=== PATIENT | female | born 1990 | race Caucasian/White ===

== ENCOUNTER 2020-12-16 08:02 | Day surgery (SDC) | payer OTHER, SELFPAY ==
[~2020-12-16] VITALS: Ht 154.9 cm; Wt 87.1 kg
[2020-12-16] MEDS ORDERED: MIDAZOLAM 5 MG/5 ML VIAL ONE (11:19)
[2020-12-16] MEDS ORDERED: MIDAZOLAM 2 MG/2 ML VIAL IVP ONE (11:55)
== END 2020-12-16 12:17 | disposition home or self-care (01) ==
LOC: MDS 08:02 → MMU 08:03 → MDS 12:17
PROVIDERS: ATTEND Internal Medicine Gastroenterology
DX: K21.00 Gastro-esophageal reflux disease with esophagitis, without bleeding (principal); E66.09 Other obesity due to excess calories; F17.210 Nicotine dependence, cigarettes, uncomplicated; Z68.36 Body mass index [BMI] 36.0-36.9, adult; I10 Essential (primary) hypertension; Z90.49 Acquired absence of other specified parts of digestive tract; Z20.828 Contact with and (suspected) exposure to other viral communicable diseases
CPT/HCPCS: 43235; J2250; U0003

== ENCOUNTER 2022-04-05 13:45 | Emergency (ER) | payer OTHER ==
[~2022-04-05] VITALS: Ht 160 cm; Wt 83.9 kg
--- NOTE | 2022-04-05 15:08 | NUR ---
PT BACK FROM US
[2022-04-05 15:12] LABS: BASOPHILS % (AUTO) 0.4 % (0.0-2.0); EOSINOPHILS % (AUTO) 0.5 % (0.0-4.0); HEMATOCRIT 38.4 % (36-48); HEMOGLOBIN 12.6 g/dL (12.0-16.0); LYMPHOCYTES # (AUTO) 2.6 K/uL (2.5-16.5); LYMPHOCYTES % (AUTO) 29.9 % (20.5-51.1); MEAN CORPUSCULAR HEMOGLOBIN 29 pg (27-31); MEAN CORPUSCULAR HGB CONC 33 g/dL (33-37); MEAN CORPUSCULAR VOLUME 87.1 fL (80-94); MONOCYTES # (AUTO) 0.8 K/uL (0.8-1.0); MONOCYTES % (AUTO) 8.8 % (1.7-9.3); NEUTROPHILS # (AUTO) 5.2 K/uL (1.8-7.7); NEUTROPHILS % (AUTO) 60.4 % (42.2-75.2); PLATELET COUNT (AUTO) 256 K/uL (140-450); RED BLOOD CELL COUNT(AUTO) 4.41 MIL/uL (4.20-5.40); RED CELL DISTRIBUTION WIDTH 13.2 % (11.6-13.7); WHITE BLOOD COUNT (AUTO) 8.6 K/uL (4.8-10.8)
--- NOTE | 2022-04-05 15:12 | NUR ---
DR MARTINEZ AT BEDSIDE EVALUATING PT
[2022-04-05 15:23] VITALS: BP 128/77
--- NOTE | 2022-04-05 15:30 | NUR ---
HR RANGING BETWEEN [phone]. DR MARTINEZ MADE AWARE
[2022-04-05 15:36] LABS: ALBUMIN 3.5 g/dL (3.4-5.0); ANION GAP 12.6 (8-16); CARBON DIOXIDE 24.6 mmol/L (21-32); CREATININE 0.7 mg/dL (0.6-1.3); POTASSIUM 4.2 mmol/L (3.5-5.1); TOTAL BILIRUBIN 0.2 mg/dL (0.0-1.0)
--- NOTE | 2022-04-05 15:40 | NUR ---
31 Y/O FEMALE C/O LLQ ABD PAIN X1 DAY WITH LIGHT VAGINAL BLEEDING. PT REPORTS BEING 6 WEEKS . A1. PT DENIES NAUSEA/VOMITING. DENIES DYSURIA. BLEEDING CONTROLLED. ABD IS FLAT SOFT AND NONTENDER. PT A/O X4 WITH EVEN AND UNLABORED RESPIRATIONS. PMH:HTN NKDA
--- NOTE | 2022-04-05 17:06 | NUR ---
PT SITTING IN BED AT THIS TIME. EVEN AND UNLABORED RESPIRATIONS NOTED. WILL CONTINUE TO MONITOR
[2022-04-05 18:42] LABS: APPEARANCE,URINE CLEAR (CLEAR); BILIRUBIN,URINE NEGATIVE (NEGATIVE); BLOOD, URINE 1+ (NEGATIVE); COLOR,URINE YELLOW (YELLOW); LEUKOCYTE ESTERASE ,URINE 2+ (NEGATIVE); NITRITE, URINE NEGATIVE (NEGATIVE); UGLUCOSE NEGATIVE (NEGATIVE)
--- NOTE | 2022-04-05 18:51 | NUR ---
PT PROVIDED WITH DINNER TRAY. DENYING PAIN AT THIS TIME. ALL NEEDS MET. AWAITING ON [facility]
--- NOTE | 2022-04-05 19:18 | NUR ---
REPORT GIVEN TO MILA BELCHER. TRANSFER OF CARE AT THIS TIME.
[2022-04-05] MEDS ORDERED: CEPH-588 PO (19:28)
[2022-04-05] MEDS ORDERED: cephALEXin 500 MG CAP PO ONE (19:30)
--- NOTE | 2022-04-05 19:49 | NUR ---
RHOG[facility], 300MCG, ADMINISTERED IM AT 1945, LEFT DELT. PT TOLERATED WELL. CONSENT SIGNED. NO PAIN.
[2022-04-05 19:58] VITALS: BP 128/68
--- NOTE | 2022-04-05 20:19 | NUR ---
Patient discharged with v/s stable. Written and verbal after care instructions given and explained. Patient alert, oriented and verbalized understanding of instructions. Ambulatory with steady gait. All questions addressed prior to discharge. ID band removed. Patient advised to follow up with PMD. Rx of KEFLEX given. Patient educated on indication of medication including possible reaction and side effects. Opportunity to ask questions provided and answered. VSS, A/OX4, AMBULATORY, UNLABORED BREATHING, AND CALM DEMEANOR.
== END 2022-04-05 20:19 | disposition home or self-care (01) ==
LOC: MED 13:45
DX: O20.0 Threatened abortion (principal); O23.41 Unspecified infection of urinary tract in pregnancy, first trimester; O34.81 Maternal care for other abnormalities of pelvic organs, first trimester; N83.201 Unspecified ovarian cyst, right side; I10 Essential (primary) hypertension; Z90.49 Acquired absence of other specified parts of digestive tract; Z79.899 Other long term (current) drug therapy; Z3A.01 Less than 8 weeks gestation of pregnancy
CPT/HCPCS: 36415; 76817; 80053; 81001; 81025; 84702; 85025; 86850; 86886; 86900; 86901; 87086; 99284; J2790; Q0092

== ENCOUNTER 2022-04-09 13:06 | Emergency (ER) | payer OTHER ==
[~2022-04-09] VITALS: Ht 152.4 cm; Wt 83.0 kg
[~2022-04-09 13:06] MED LIST: CEPH-588 PO
[2022-04-09 13:18] VITALS: BP 128/77
--- NOTE | 2022-04-09 13:25 | NUR ---
AMBULATED TO BED 11 WITH STEADY GAIT
--- NOTE | 2022-04-09 13:28 | NUR ---
AMBULATED TO BATHROOM
--- NOTE | 2022-04-09 13:30 | NUR ---
31 y/o female bib spouse from home, pt states this morning she had blood with wiping. denies any heavy bleeding or clots at this time. no saturation of pads at this time. c/o lower abd pain, describes it as cramping denies nausea, vomiting, diarrhea. skin is pink/warm/dry. a&o x4, macanese speaking, with even and steady gait. lungs clear bl, heart rate even and regular. pt denies any fever, cp, sob, or cough at this time. pt states pain is 7/10 at this time. patient positioned for comfort. hob elevated. bed down. ermd made aware of pt. LMP: February [id number] pmh: htn nka
--- NOTE | 2022-04-09 14:09 | NUR ---
ANIYAH AT BEDSIDE
[2022-04-09 14:30] LABS: BASOPHILS # (AUTO) 0.1 K/uL (0.00-0.22); BASOPHILS % (AUTO) 0.9 % (0.0-2.0); EOSINOPHILS % (AUTO) 0.4 % (0.0-4.0); HEMATOCRIT 41.2 % (36-48); HEMOGLOBIN 13.6 g/dL (12.0-16.0); LYMPHOCYTES % (AUTO) 27.4 % (20.5-51.1); MEAN CORPUSCULAR HEMOGLOBIN 29 pg (27-31); MEAN CORPUSCULAR HGB CONC 33 g/dL (33-37); MEAN CORPUSCULAR VOLUME 88.6 fL (80-94); MONOCYTES # (AUTO) 0.6 K/uL (0.8-1.0); NEUTROPHILS # (AUTO) 4.7 K/uL (1.8-7.7); NEUTROPHILS % (AUTO) 63.3 % (42.2-75.2); PLATELET COUNT (AUTO) 221 K/uL (140-450); RED BLOOD CELL COUNT(AUTO) 4.66 MIL/uL (4.20-5.40); WHITE BLOOD COUNT (AUTO) 7.5 K/uL (4.8-10.8)
[2022-04-09 14:39] LABS: BILIRUBIN,URINE NEGATIVE (NEGATIVE); BLOOD, URINE 3+ (NEGATIVE); COLOR,URINE YELLOW (YELLOW); LEUKOCYTE ESTERASE ,URINE 1+ (NEGATIVE); NITRITE, URINE NEGATIVE (NEGATIVE); UGLUCOSE NEGATIVE (NEGATIVE)
[2022-04-09 14:49] LABS: APPEARANCE,URINE HAZY (CLEAR)
[2022-04-09 14:51] LABS: ALBUMIN 3.3 g/dL (3.4-5.0); ANION GAP 9.6 (8-16); CARBON DIOXIDE 28.5 mmol/L (21-32); CREATININE 0.8 mg/dL (0.6-1.3); POTASSIUM 4.1 mmol/L (3.5-5.1); TOTAL BILIRUBIN 0.3 mg/dL (0.0-1.0)
[2022-04-09 15:15] LABS: RBC,URINE 0-5 /HPF (0-5); YEAST,URINE Few /HPF (None Seen)
[2022-04-09 15:44] LABS: PROTHROMBIN TIME 10.1 secs (10.8-13.4)
[2022-04-09 16:39] VITALS: BP 126/52
--- NOTE | 2022-04-09 16:39 | NUR ---
Patient discharged with v/s stable. Written and verbal after care instructions ABOUT THREATENED MISCARRIAGE given and explained. Patient alert, oriented and verbalized understanding of instructions. Ambulatory with steady gait. All questions addressed prior to discharge. ID band removed. Patient advised to follow up with PMD. Rx of KELFEX given. Patient educated on indication of medication including possible reaction and side effects. Opportunity to ask questions provided and answered.
[2022-04-09] MEDS ORDERED: CEPH500C16 PO (16:41)
== END 2022-04-09 16:39 | disposition home or self-care (01) ==
LOC: MED 13:06
DX: O20.0 Threatened abortion (principal); O23.41 Unspecified infection of urinary tract in pregnancy, first trimester; N39.0 Urinary tract infection, site not specified; I10 Essential (primary) hypertension; Z3A.01 Less than 8 weeks gestation of pregnancy; Z90.49 Acquired absence of other specified parts of digestive tract
CPT/HCPCS: 36415; 76801; 80053; 81001; 81025; 84702; 85025; 85610; 85730; 87086; 99284; Q0092

== ENCOUNTER 2022-04-12 20:03 | Emergency (ER) | payer OTHER ==
[~2022-04-12] VITALS: Ht 154.9 cm; Wt 83.5 kg
[~2022-04-12 20:03] MED LIST changes: +CEPH500C16 PO
[2022-04-12 20:25] VITALS: BP 118/64
--- NOTE | 2022-04-12 20:43 | NUR ---
Blood for labwork drawn from right arm per dividend clerk. Patient tolerated well.
[2022-04-12 20:57] LABS: EOSINOPHILS # (AUTO) 0.2 K/uL (0-0.4); EOSINOPHILS % (AUTO) 2.1 % (0.0-4.0); HEMATOCRIT 39.6 % (36-48); LYMPHOCYTES # (AUTO) 2.2 K/uL (2.5-16.5); LYMPHOCYTES % (AUTO) 24.7 % (20.5-51.1); MEAN CORPUSCULAR HEMOGLOBIN 29 pg (27-31); MEAN CORPUSCULAR HGB CONC 33 g/dL (33-37); MEAN CORPUSCULAR VOLUME 88.4 fL (80-94); MONOCYTES # (AUTO) 0.6 K/uL (0.8-1.0); NEUTROPHILS # (AUTO) 5.9 K/uL (1.8-7.7); NEUTROPHILS % (AUTO) 66.2 % (42.2-75.2); PLATELET COUNT (AUTO) 234 K/uL (140-450); RED BLOOD CELL COUNT(AUTO) 4.48 MIL/uL (4.20-5.40); RED CELL DISTRIBUTION WIDTH 13.2 % (11.6-13.7); WHITE BLOOD COUNT (AUTO) 8.9 K/uL (4.8-10.8)
[2022-04-12 21:16] LABS: APPEARANCE,URINE BLOODY (CLEAR); BILIRUBIN,URINE NEGATIVE (NEGATIVE); BLOOD, URINE 3+ (NEGATIVE); COLOR,URINE RED (YELLOW); LEUKOCYTE ESTERASE ,URINE TRACE (NEGATIVE); NITRITE, URINE NEGATIVE (NEGATIVE); PH,URINE 5.5 (5.0-9.0); UGLUCOSE NEGATIVE (NEGATIVE)
--- NOTE | 2022-04-12 22:13 | NUR ---
Dr. MACDONALD examining patient.
[2022-04-12 22:43] VITALS: BP 122/82
--- NOTE | 2022-04-12 22:43 | NUR ---
Patient discharged with v/s stable. Written and verbal after care instructions given and explained. Patient verbalized understanding. Ambulatory with steady gait. All questions addressed prior to discharge. Advised to follow up with PMD.
[2022-04-13 01:46] LABS: RBC,URINE TOO NUMEROUS TO COUN /HPF (0-5)
== END 2022-04-12 22:43 | disposition home or self-care (01) ==
LOC: MED 20:03
DX: O03.9 Complete or unspecified spontaneous abortion without complication (principal); I10 Essential (primary) hypertension; Z79.899 Other long term (current) drug therapy; Z90.49 Acquired absence of other specified parts of digestive tract
CPT/HCPCS: 36415; 81001; 84702; 85025; 87086; 99283